=== PATIENT | female | born 1945 | race Caucasian/White ===

== ENCOUNTER 2020-01-06 13:41 | Outpatient (CLI) | payer MEDICARE, OTHER ==
[~2020-01-06 13:41] MED LIST: AGGRENOX1 CAP ORAL; BENAZEPRIL HCL10 MG ORAL; CREON DR 36,001 EACH PO; FERROUS SULFAT325 MG ORAL; FOLIC ACID1 MG ORAL; LAMICTAL100 MG ORAL; METFORMIN HCL500 M1 ORAL; METOPROLOL SUCC50 MG ORAL; METOPROLOL TART25 MG ORAL; MONTELUKAST SOD10 MG ORAL; OMEPRAZOLE40 M1 ORAL; TOFRANIL50 MG ORAL; VITAMIN D250000 UNI1 ORAL
[2020-01-06 14:04] VITALS: BP 128/58
--- NOTE | 2020-01-06 15:45 | Consultation ---
DATE OF CONSULTATION: 01/06/2020 CHIEF COMPLAINT: Leakage from the rectum area, maybe questionable fistula, history of colonic polyps. Last colonoscopy over 5 years ago. PAST MEDICAL HISTORY: 1. Hemorrhoidal surgery about 4 years ago. 2. Hypertension. 3. Pacemaker placement. 4. GERD. ALLERGIES: No known drug allergies. MEDICATIONS: Please see medication reconciliation list. SOCIAL HISTORY: The patient has remote history of tobacco. Denies any alcohol or IV drug abuse. FAMILY HISTORY: Noncontributory. PAST SURGICAL HISTORY: 1. Hemorrhoidectomy. 2. Pacemaker placement. REVIEW OF SYSTEMS: A 10-point review of systems was performed and pertinent positives in HPI. PHYSICAL EXAMINATION: GENERAL: A well-developed female, in no acute distress. VITAL SIGNS: Temperature is 97.8, blood pressure is 124/58, pulse is 72, respirations 20. HEENT: Normocephalic and atraumatic. Sclerae anicteric. NECK: Supple. No evidence of obvious lymphadenopathy. CARDIOVASCULAR: Regular rate and rhythm. Plus S1, S2. LUNGS: Clear to auscultation bilaterally. ABDOMEN: Positive bowel sounds. Soft and nontender. No rebound. No guarding. No peritoneal sign. EXTREMITIES: No cyanosis. No clubbing. No edema. ASSESSMENT/PLAN: The patient is a 74-year-old female with leakage around the rectum area, questionable fistula. The patient also has history of colonic polyp, diverticulosis. Plan to do a colonoscopy and after colonoscopy we will decide if the patient has any inflammatory bowel disease as a causative for her fistula, rule out any other causes of leakage, and then we will have the patient to follow up in the office for further management. Luis Fofana M.D. DR: Rodrick JOB#: [id number] CC:
== END 2020-01-06 17:08 | disposition home or self-care (01) ==
LOC: PAN 13:41
DX: K62.89 Other specified diseases of anus and rectum (principal)
CPT/HCPCS: 99212

== ENCOUNTER 2020-01-15 10:03 | Day surgery (SDC) | payer MEDICARE, OTHER ==
[2020-01-15] VITALS (9 sets, daily range): BP systolic 110–137; BP diastolic 63–76
[~2020-01-15] VITALS: Ht 154.9 cm; Wt 63.9 kg
[~2020-01-15 10:03] MED LIST changes: +LR 1000ml 1,000 ML IVLG SCH
[2020-01-15] MEDS ORDERED: fentaNYL 100 mcg/2 mL IV ONE (10:04)
[2020-01-15] MEDS ORDERED: SEIZURE MED PO (10:45)
[2020-01-15] MEDS ORDERED: Propofol 200mg/20ml IV ONE (11:30)
[2020-01-15] MEDS ORDERED: LR 1000ml ONE (11:30)
--- NOTE | 2020-01-15 11:33 | Pre-Procedure Note/Attestation ---
Pre-Procedure Note/Attestation Complete Prior to Procedure Planned Procedure: not applicable Procedure Narrative: colonoscopy Indications for Procedure Pre-Operative Diagnosis: screening colon Attestation I attest that I discussed the nature of the procedure; its benefits; risks and complications; and alternatives (and the risks and benefits of such alternatives ), prior to the procedure, with the patient (or the patient's legal visitor services representative). I attest that, if there was a reasonable possibility of needing a blood transfusion, the patient (or the patient's legal visitor services representative) was given the [facility] standardized written summary, pursuant to the [place] Blood Safety Act ([place] Health and Safety Code # 1645, as amended). I attest that I re-evaluated the patient just prior to the surgery and that there has been no change in the patient's H&P, except as documented below: Luis Fofana MD Jan 15, 2020 11:33
--- NOTE | 2020-01-15 11:34 | Short Stay Surgery H&P ---
History of Present Illness History of Present Illness Chief Complaint see recent office note HPI Masood Nichols is a 74 year old female who was admitted on for Anal Leakage, Fistula Patient History Allergies: Coded Allergies: No Known Allergies (Unverified , 05/18/15) Medication History Scheduled Dipyridamole/Aspirin (Aggrenox 25 mg-200 mg Capsule), 1 CAP ORAL TWICE A DAY, ( Reported) Ergocalciferol (Vitamin D2)* (Vitamin D*), 50,000 UNIT ORAL ONCE A WEEK, ( Reported) Metoprolol Succinate* (Metoprolol Succinate*), 50 MG ORAL DAILY, (Reported) Omeprazole (Omeprazole), 40 MG ORAL DAILY, (Reported) [Seizure Med], Unknown Dose PO DAILY, (Reported) Discontinued Medications Benazepril Hcl* (Benazepril Hcl*), 10 MG ORAL DAILY, (Reported) Discontinued Reason: Pt stopped taking med Folic Acid* (Folic Acid*), 1 MG ORAL DAILY, (Reported) Discontinued Reason: Pt stopped taking med Imipramine Hcl* (Tofranil*), 25 MG ORAL THREE TIMES A DAY, (Reported) Discontinued Reason: Pt stopped taking med Lamotrigine* (Lamictal*), 100 MG ORAL DAILY, (Reported) Discontinued Reason: discontinued med Lipase/Protease/Amylase (Creon Dr 36,000 Units Capsule), 1 EACH PO TID, ( Reported) Discontinued Reason: Pt stopped taking med Physical Exam Vital Signs Last Vital Signs Date Time Temp Pulse Resp B/P (MAP) Pulse Ox O2 Delivery O2 Flow Rate FiO2 01/15/20 10:35 97.8 77 18 110/64 95 Room Air Plan Attestation Are the patient's medical conditions optimized for surgery? Luis Fofana MD Jan 15, 2020 11:34
--- NOTE | 2020-01-15 11:43 | Anethesia Preoperative Eval ---
Anesthesia Pre-op PMH/ROS General Date of Evaluation: Jan 15, 2020 Time of Evaluation: 11:20 Anesthesiologist: Elab ASA Score: ASA 3 Mallampati Score Class I : Soft palate, uvula, fauces, pillars visible Class II: Soft palate, uvula, fauces visible Class III: Soft palate, base of uvula visible Class IV: Only hard plate visible Mallampati Classification: Class II Surgeon: Ct Diagnosis: Abdominal pain Surgical Procedure: Colonoscopy Anesthesia History: none Family History: no anesthesia problems Allergies: Coded Allergies: No Known Allergies (Unverified , 05/18/15) Medications: see eMAR Patient NPO?: Yes Past Medical History Cardiovascular: Reports: HTN, other - h/o arrhytmia pacer in place; Denies: CAD, [place], valve dz, arrhythmia Pulmonary: Denies: asthma, COPD, IZZY, other Gastrointestinal/Genitourinary: Reports: GERD, other - chronic diarrhea; Denies: CRI, ESRD Neurologic/Psychiatric: Reports: depression/anxiety; Denies: dementia, CVA, TIA, other Endocrine: Denies: DM, hypothyroidism, steroids, other HEENT: Denies: cataract (L), cataract (R), glaucoma, [place] (L), [place] (R), other Hematology/Immune: Denies: anemia, DVT, bleeding disorder, other Musculoskeletal/Integumentary: Denies: OA, RA, DJD, DDD, edema, other PMH Narrative: as above PSxH Narrative: See H&P Anesthesia Pre-op Phys. Exam Physician Exam Last Vital Signs Date Time Temp Pulse Resp B/P (MAP) Pulse Ox O2 Delivery O2 Flow Rate FiO2 01/15/20 10:35 97.8 77 18 110/64 95 Room Air Constitutional: NAD Neurologic: CN 2-12 intact Cardiovascular: RRR, no M/R/G Respiratory: CTA Gastrointestinal: S/NT/ND Airway Exam Mallampati Score: Class II MO: full Neck: flexible ROM: full Teeth: missing Dentures: no upper, no lower Anesthesia Pre-op A/P Studies Pre-op Studies: EKG - Paced rhytm Risk Assessment & Plan Assessment: ASA 3 Plan: MAC Status Change Before Surgery: Kevin Camacho MD Jan 15, 2020 11:43
[2020-01-15] MEDS ORDERED: LR 1000ml 1,000 ML IVLG SCH (11:44)
[2020-01-15] MEDS ORDERED: fentaNYL 100 mcg/2 mL IV PRN (11:45)
--- NOTE | 2020-01-15 11:59 | Endoscopy Procedure Note ---
Endoscopy Procedure Note General Indication for Procedure: screening colon Procedures Performed: colonoscopy Operative Findings/Diagnosis: one polyp Specimen: yes Pt Tolerated Procedure Well: Yes Estimated Blood Loss: none Anesthesia Anesthesiologist: gregorio Anesthesia: MAC Inserted Devices Implant(s) used?: No Quality Quality of Bowel Preparation: Good Did scope reach the cecum?: Yes Was there any complications?: No GI Core Measures 50 yrs or older w/o bx or poly: No 10yrs. F/U recommended: Yes If not recommended, why?: Above average risk 18 years or older w/prev. colo: Yes <3yrs. since last colonoscopy: No Luis Fofana MD Jan 15, 2020 11:59
--- NOTE | 2020-01-15 12:04 | Immediate Post-Op Evaluation ---
Immediate Post-Op Evalulation Immediate Post-Op Evalulation Procedure: Colonoscopy Date of Evaluation: Jan 15, 2020 Time of Evaluation: 12:03 IV Fluids: 600 Blood Products: none Estimated Blood Loss: none Urinary Output: none Blood Pressure Systolic: 122 Blood Pressure Diastolic: 58 Pulse Rate: 72 Respiratory Rate: 20 O2 Sat by Pulse Oximetry: 98 Temperature (Fahrenheit): 97.6 Pain Score (1-10): 1 Nausea: No Vomiting: No Complications none Patient Status: awake, patent, none Hydration Status: adequate Kevin Arreola MD Jan 15, 2020 12:04
--- NOTE | 2020-01-15 12:56 | 48 Hour Post Anesthesia Eval ---
Post Anesthesia Evaluation Procedure: Colonoscopy Date of Evaluation: Jan 15, 2020 Time of Evaluation: 12:55 Blood Pressure Systolic: 128 0: 76 Pulse Rate: 68 Respiratory Rate: 20 Temperature (Fahrenheit): 97.6 O2 Sat by Pulse Oximetry: 98 Airway: patent Nausea: No Vomiting: No Pain Intensity: 1 Hydration Status: adequate Cardiopulmonary Status: stable Mental Status/LOC: patient returned to baseline Follow-up Care/Observations: n/a Post-Anesthesia Complications: none Follow-up care needed: ready to discharge Kevin Arreola MD Jan 15, 2020 12:56
--- NOTE | 2020-01-15 16:00 | Procedure Note ---
DATE OF PROCEDURE: 01/15/2020 SURGEON: Luis Fofana M.D. PROCEDURE: Colonoscopy with biopsy and snare polypectomy. ANESTHESIA: Per Dr. Arreola. INSTRUMENT: Olympus adult flexible colonoscope. INDICATION: Chronic diarrhea, screening colonoscopy. REASON FOR PROCEDURE: The procedure, risks, benefits, and possible consequences, including hemorrhage, aspiration, perforation and infection, and alternative treatments, were explained to the patient/legal guardian by Dr. Luis Fofana and the patient/legal guardian understood and accepted these risks. DESCRIPTION OF PROCEDURE: After informed consent was obtained and the patient was adequately sedated, first rectal exam was performed, which was normal. Then, the scope was advanced from the rectum into cecum and then subsequently into terminal ileum. Quality of prep overall was good. The patient has a flat, small polyp in the cecum removed with hot snare polypectomy technique. Given chronic diarrhea, random biopsy from the right and left colon was obtained. The patient has evidence of diverticulosis in the left colon. No further polyp was seen. Retroflexion showed evidence of internal hemorrhoids. SUMMARY OF FINDINGS: 1. One polyp removed from cecum. See above for details. 2. Status post biopsy of the right and left colon for evaluation of diarrhea. 3. Diverticulosis. 4. Internal hemorrhoids. RECOMMENDATIONS: Follow up biopsy results and treat accordingly. Luis Fofana M.D. DR: LAURENCE JOB#: [id number] CC:
== END 2020-01-15 13:15 | disposition home or self-care (01) ==
LOC: GAS 10:03
DX: Z12.11 Encounter for screening for malignant neoplasm of colon (principal); K63.5 Polyp of colon; K57.90 Diverticulosis of intestine, part unspecified, without perforation or abscess without bleeding; K64.8 Other hemorrhoids; Z79.899 Other long term (current) drug therapy; I10 Essential (primary) hypertension; K21.9 Gastro-esophageal reflux disease without esophagitis; F32.9 Major depressive disorder, single episode, unspecified; F41.9 Anxiety disorder, unspecified
CPT/HCPCS: 45380; 45385; 93005; J2704; J3010; J7120; 94003; 94150